=== PATIENT | female | born 1975 | race Caucasian/White ===

== ENCOUNTER 2021-06-12 08:13 | Emergency (ER) | payer OTHER | END 2021-06-12 09:38 | disposition left against medical advice (07) | LOC: FER 08:13 | DX: M54.6 Pain in thoracic spine (principal); R51.9 Headache, unspecified; M54.5 Low back pain; V47.5XXA Car driver injured in collision with fixed or stationary object in traffic accident, initial encounter; Y92.410 Unspecified street and highway as the place of occurrence of the external cause ==